=== PATIENT | male | born 1950 | race African-American/Black ===

== ENCOUNTER 2020-01-21 16:43 | Emergency (ER) | payer MEDICARE ==
[~2020-01-21] VITALS: Wt 95.7 kg
[~2020-01-21 16:43] MED LIST: ATENOLOL25 MG PO; MOTRIN400 MG PO; PEN-VEE K500 MG PO; PERIDEX 480 ML480 ML PO
[2020-01-21] MEDS ORDERED: CHLORDIAZEPOXID25 M1 PO (17:33)
== END 2020-01-21 18:16 | disposition home or self-care (01) ==
LOC: ED 16:43
DX: F10.20 Alcohol dependence, uncomplicated (principal); I10 Essential (primary) hypertension; Z88.5 Allergy status to narcotic agent; Z79.899 Other long term (current) drug therapy

== ENCOUNTER 2022-05-29 13:36 | Inpatient (IN) | payer OTHER ==
[~2022-05-29] VITALS: Ht 182.8 cm; Wt 78.0 kg
[~2022-05-29 13:36] MED LIST changes: +AMLODIPINE BESYL5 MG PO; +CHLORDIAZEPOXID25 M1 PO; +MIRTAZAPINE15 M2 PO; +NATURE'S BLEND F1 MG PO; +VITAMIN B-1100 M1 PO
[2022-05-29 13:45] VITALS: BP 154/99
[2022-05-29 15:07] LABS: BILIRUBIN Negative (Negative); BLOOD Negative (Negative); CLARITY Clear (Clear); COLOR Yellow (Yellow); GLUCOSE Trace (Negative); KETONE Trace (Negative); LEUKO ESTERASE Negative (Negative); NITRITE Negative (Negative); PH 5.5 (4.5-8.0)
[2022-05-29 15:18] LABS: URINE BARBITURATES > 200 (200ng/ml); URINE CANNABINOIDS (THC) < 50 (50ng/ml); URINE METHADONE < 300 (300ng/ml); URINE OPIATES < 300 (300ng/ml)
[2022-05-29 15:26] LABS: RBC 0-2 rbc/hpf (0-2); WBC 0-2 wbc/hpf (0-5)
[2022-05-29 15:27] LABS: MUCOUS 1+
[2022-05-29 15:28] LABS: URINE AMPHETAMINES < 1000 (1000ng/ml); URINE BENZODIAZEPINES < 200 (200ng/ml); URINE COCAINE < 300 (300ng/ml)
[2022-05-29 15:29] LABS: URINE PHENCYCLIDINE < 25 (25ng/ml)
[2022-05-29 15:36] LABS: HEMATOCRIT 37.7 % (42.0-52.0); MEAN CELL VOLUME 99.2 fl (80.0-94.0); MEAN CORPUSCULAR HGB 34.2 pg (27.0-31.0); MEAN CORPUSCULAR HGB CONC 34.5 g/dl (33.0-37.0); MEAN PLATELET VOLUME 8.9 fl (9.6-12.3); NUCLEATED RED BLOOD CELL 0.6 % (0.0-0.0); PLATELET COUNT AUTOMATED 217 10*3/uL (130-400); WHITE BLOOD COUNT 5.1 10*3/uL (4.8-10.8)
[2022-05-29 15:48] LABS: ACT PARTIAL THROMBO TIME 26.7 SECONDS (20.0-32.1)
[2022-05-29 15:54] LABS: BUN 9 mg/dl (7-24); CHLORIDE 107 mmol/L (98-107); CREATININE 1.05 mg/dL (0.70-1.30); LIPASE 161 U/L (73-393); POTASSIUM 3.3 mmol/L (3.5-5.1); SGOT/AST 94 IU/L (3-35); SGPT/ALT 120 U/L (12-78); SODIUM 137 mmol/L (136-145); TOTAL PROTEIN 7.8 gm/dL (6.4-8.2)
[2022-05-29 15:56] LABS: ALKALINE PHOSPHATASE 82 U/L (45-117)
[2022-05-29 16:02] LABS: MANUAL DIFF REFLEX YES
[2022-05-29 16:17] LABS: OVALOCYTES FEW; PLATELET SUFFICIENCY NORMAL (NORMAL); TOTAL CELLS COUNTED 100 #CELLS
[2022-05-29 17:00] VITALS: BP 210/130
[2022-05-29] MEDS ORDERED: MEN'S ONE DAIL1 EACH PO (17:18)
[2022-05-29] MEDS ORDERED: OMEPRAZOLE MAGN20 MG PO (17:18)
[2022-05-29] MEDS ORDERED: LOPERAMIDE HCL2 MG PO (17:21)
[2022-05-29 19:06] VITALS: BP 180/100
[2022-05-29 20:00] VITALS: BP 156/92
[2022-05-30] VITALS: BP 144/85
[2022-05-30 05:36] LABS: ALKALINE PHOSPHATASE 74 U/L (45-117); BUN 10 mg/dl (7-24); CHLORIDE 106 mmol/L (98-107); CREATININE 0.94 mg/dL (0.70-1.30); SGOT/AST 57 IU/L (3-35); SGPT/ALT 87 U/L (12-78); SODIUM 139 mmol/L (136-145); TOTAL PROTEIN 6.5 gm/dL (6.4-8.2)
[2022-05-30 06:08] LABS: HEMATOCRIT 34.5 % (42.0-52.0); MEAN CELL VOLUME 98.6 fl (80.0-94.0); MEAN CORPUSCULAR HGB 33.7 pg (27.0-31.0); MEAN CORPUSCULAR HGB CONC 34.2 g/dl (33.0-37.0); MEAN PLATELET VOLUME 9.2 fl (9.6-12.3); NUCLEATED RED BLOOD CELL 0.7 % (0.0-0.0); PLATELET COUNT AUTOMATED 206 10*3/uL (130-400); RED CELL DISTRI WIDTH 14.7 % (0-14.5); WHITE BLOOD COUNT 4.5 10*3/uL (4.8-10.8)
[2022-05-30 06:36] LABS: MANUAL DIFF REFLEX YES
[2022-05-30 06:52] LABS: BASOPHILS 1 % (0-1); PLATELET SUFFICIENCY NORMAL (NORMAL); TOTAL CELLS COUNTED 100 #CELLS
[2022-05-30 08:00] VITALS: BP 146/87
[2022-05-30 12:00] VITALS: BP 124/83
[2022-05-30 16:00] VITALS: BP 118/94
[2022-05-30 20:00] VITALS: BP 130/83
[2022-05-31] VITALS: BP 127/72
[2022-05-31 06:00] LABS: BUN 16 mg/dl (7-24); CHLORIDE 108 mmol/L (98-107); CREATININE 1.05 mg/dL (0.70-1.30); SODIUM 141 mmol/L (136-145)
[2022-05-31 06:27] LABS: BASO % 0.4 % (0.0-1.0); EOS # 0.1 10*3/uL (0.0-0.4); EOS % 1.2 % (1.0-4.0); HEMATOCRIT 34.3 % (42.0-52.0); LYMPH # 1.7 10*3/uL (1.3-4.4); LYMPH % 33.2 % (27.0-41.0); MEAN CORPUSCULAR HGB 33.9 pg (27.0-31.0); MEAN CORPUSCULAR HGB CONC 32.9 g/dl (33.0-37.0); MEAN PLATELET VOLUME 9.7 fl (9.6-12.3); MONO # 0.8 10*3/uL (0.1-1.0); MONO % 15.7 % (3.0-9.0); NEUT # 2.5 10*3/uL (2.3-7.9); NEUT % 48.9 % (47.0-73.0); PLATELET COUNT AUTOMATED 201 10*3/uL (130-400); RED BLOOD COUNT 3.33 10*6/uL (4.50-5.90); RED CELL DISTRI WIDTH 14.7 % (0-14.5); WHITE BLOOD COUNT 5.1 10*3/uL (4.8-10.8)
[2022-05-31 08:00] VITALS: BP 153/84
[2022-05-31 12:00] VITALS: BP 115/86
[2022-05-31 16:00] VITALS: BP 131/76
[2022-05-31 20:00] VITALS: BP 148/86
[2022-06-01] VITALS: BP 134/75
[2022-06-01 05:50] LABS: BUN 16 mg/dl (7-24); CHLORIDE 109 mmol/L (98-107); CREATININE 1.01 mg/dL (0.70-1.30); POTASSIUM 4.5 mmol/L (3.5-5.1); SODIUM 141 mmol/L (136-145)
[2022-06-01 06:15] LABS: BASO % 0.6 % (0.0-1.0); EOS # 0.1 10*3/uL (0.0-0.4); EOS % 1.2 % (1.0-4.0); LYMPH # 1.3 10*3/uL (1.3-4.4); LYMPH % 25.6 % (27.0-41.0); MEAN CELL VOLUME 104.3 fl (80.0-94.0); MEAN CORPUSCULAR HGB CONC 32.6 g/dl (33.0-37.0); MEAN PLATELET VOLUME 9.7 fl (9.6-12.3); MONO # 0.7 10*3/uL (0.1-1.0); MONO % 14.1 % (3.0-9.0); NEUT % 57.9 % (47.0-73.0); PLATELET COUNT AUTOMATED 199 10*3/uL (130-400); RED BLOOD COUNT 3.26 10*6/uL (4.50-5.90); RED CELL DISTRI WIDTH 14.8 % (0-14.5); WHITE BLOOD COUNT 5.2 10*3/uL (4.8-10.8)
[2022-06-01 08:00] VITALS: BP 116/81
[2022-06-01 12:00] VITALS: BP 143/80
[2022-06-01 16:00] VITALS: BP 119/63
== END 2022-06-01 19:11 | disposition short-term general hospital (02) | DRG 897 ==
LOC: ED 13:36 → EDHOLD 14:58 → 4E 14:58 → EDHOLD 15:32 → 4E 16:00
PROVIDERS: Emergency Medicine; Student in an Organized Health Care Education/Training Program; ADMIT Internal Medicine; ATTEND Internal Medicine
DX: F10.280 Alcohol dependence with alcohol-induced anxiety disorder (principal); E87.2 Acidosis; Z20.822 Contact with and (suspected) exposure to COVID-19; I10 Essential (primary) hypertension; F43.10 Post-traumatic stress disorder, unspecified; F32.9 Major depressive disorder, single episode, unspecified; D53.9 Nutritional anemia, unspecified; Z88.6 Allergy status to analgesic agent; Z90.49 Acquired absence of other specified parts of digestive tract; Z87.891 Personal history of nicotine dependence; Z80.3 Family history of malignant neoplasm of breast

== ENCOUNTER 2023-09-17 10:11 | Inpatient (IN) | payer MEDICARE ==
[~2023-09-17] VITALS: Ht 185.4 cm; Wt 83.0 kg
[~2023-09-17 10:11] MED LIST changes: +LOPERAMIDE HCL2 MG PO; +MEN'S ONE DAIL1 EACH PO; +OMEPRAZOLE MAGN20 MG PO
[2023-09-17 10:25] VITALS: BP 146/86
[2023-09-17] MEDS ORDERED: ALLOPURINOL300 MG PO (10:59)
[2023-09-17] MEDS ORDERED: NORVASC5 MG PO (11:00)
[2023-09-17] MEDS ORDERED: MELATONIN3 MG PO (11:00)
[2023-09-17] MEDS ORDERED: PRAZOSIN HCL5 MG PO (11:01)
[2023-09-17] MEDS ORDERED: VITAMIN D325 MCG PO (11:06)
[2023-09-17] MEDS ORDERED: TENORMIN50 MG PO (11:07)
[2023-09-17 11:41] LABS: BASO % 0.3 % (0.0-1.0); EOS % 0.6 % (1.0-4.0); HEMATOCRIT 41.2 % (42.0-52.0); LYMPH % 27.3 % (27.0-41.0); MEAN CELL VOLUME 95.2 fl (80.0-94.0); MEAN CORPUSCULAR HGB 33.3 pg (27.0-31.0); MEAN PLATELET VOLUME 8.8 fl (9.6-12.3); MONO # 0.5 10*3/uL (0.1-1.0); MONO % 13.2 % (3.0-9.0); NEUT # 2.1 10*3/uL (2.3-7.9); NEUT % 58.3 % (47.0-73.0); PLATELET COUNT AUTOMATED 147 10*3/uL (130-400); RED BLOOD COUNT 4.33 10*6/uL (4.50-5.90); WHITE BLOOD COUNT 3.6 10*3/uL (4.8-10.8)
[2023-09-17 11:52] LABS: ACT PARTIAL THROMBO TIME 26.4 SECONDS (20.0-32.1); INTERNATIONAL NORM RATIO 1.1 (2.0-3.5)
[2023-09-17 12:10] LABS: ALKALINE PHOSPHATASE 71 U/L (46-116); BUN 7 mg/dl (9-23); CHLORIDE 103 mmol/L (98-107); POTASSIUM 3.5 mmol/L (3.4-5.1); SGPT/ALT 41 U/L (5-49); TOTAL PROTEIN 7.3 gm/dL (6.0-8.0)
[2023-09-17 12:20] LABS: ETHYL ALCOHOL < 3.0 mg/dl (<3)
[2023-09-17 13:08] VITALS: BP 156/92
[2023-09-17 16:00] VITALS: BP 144/77
[2023-09-17 20:00] VITALS: BP 144/78
[2023-09-18] VITALS: BP 120/64
[2023-09-18 06:19] LABS: BASO % 0.3 % (0.0-1.0); EOS # 0.1 10*3/uL (0.0-0.4); EOS % 2.2 % (1.0-4.0); HEMATOCRIT 37.5 % (42.0-52.0); LYMPH # 1.4 10*3/uL (1.3-4.4); MEAN CELL VOLUME 97.2 fl (80.0-94.0); MEAN CORPUSCULAR HGB 32.9 pg (27.0-31.0); MEAN CORPUSCULAR HGB CONC 33.9 g/dl (33.0-37.0); MEAN PLATELET VOLUME 9.2 fl (9.6-12.3); MONO # 0.6 10*3/uL (0.1-1.0); MONO % 15.4 % (3.0-9.0); NEUT # 1.6 10*3/uL (2.3-7.9); NEUT % 42.8 % (47.0-73.0); PLATELET COUNT AUTOMATED 135 10*3/uL (130-400); RED BLOOD COUNT 3.86 10*6/uL (4.50-5.90); RED CELL DISTRI WIDTH 16.2 % (0-14.5); WHITE BLOOD COUNT 3.6 10*3/uL (4.8-10.8)
[2023-09-18 06:24] LABS: ACT PARTIAL THROMBO TIME 26.8 SECONDS (20.0-32.1)
[2023-09-18 06:52] LABS: ALKALINE PHOSPHATASE 86 U/L (46-116); BUN 9 mg/dl (9-23); CHLORIDE 105 mmol/L (98-107); CHOLESTEROL 136 mg/dL (<200); FREE T4 1.14 ng/dl (0.89-1.76); LDL CHOLESTEROL 58 mg/dL (9-159); SGPT/ALT 29 U/L (5-49); TOTAL PROTEIN 6.2 gm/dL (6.0-8.0); TRIGLYCERIDES 152 mg/dl (<150)
[2023-09-18 07:58] LABS: VITAMIN D, 25-HYDROXY 45.3 ng/mL (30-100)
[2023-09-18 08:00] VITALS: BP 138/84
[2023-09-18 12:00] VITALS: BP 132/82
[2023-09-18 15:19] VITALS: BP 133/72
[2023-09-18 20:00] VITALS: BP 140/85
[2023-09-18 22:42] LABS: BILIRUBIN Negative (Negative); BLOOD Negative (Negative); CLARITY Clear (Clear); COLOR Yellow (Yellow); GLUCOSE Negative (Negative); KETONE Negative (Negative); LEUKO ESTERASE Negative (Negative); NITRITE Negative (Negative)
[2023-09-18 22:48] LABS: URINE AMPHETAMINES Negative (1000ng/ml); URINE BARBITURATES Negative (200ng/ml); URINE BENZODIAZEPINES Negative (200ng/ml); URINE CANNABINOIDS (THC) Negative (50ng/ml); URINE COCAINE Negative (300ng/ml); URINE METHADONE Negative (300ng/ml); URINE OPIATES Negative (300ng/ml); URINE PHENCYCLIDINE Negative (25ng/ml)
[2023-09-18 23:02] LABS: WBC 0-2 wbc/hpf (0-5)
[2023-09-19] VITALS: BP 163/85
[2023-09-19 06:19] LABS: BASO % 0.2 % (0.0-1.0); EOS # 0.1 10*3/uL (0.0-0.4); EOS % 1.6 % (1.0-4.0); HEMATOCRIT 37.2 % (42.0-52.0); LYMPH # 1.2 10*3/uL (1.3-4.4); LYMPH % 26.9 % (27.0-41.0); MEAN CELL VOLUME 94.4 fl (80.0-94.0); MEAN CORPUSCULAR HGB 33.2 pg (27.0-31.0); MEAN CORPUSCULAR HGB CONC 35.2 g/dl (33.0-37.0); MEAN PLATELET VOLUME 9.1 fl (9.6-12.3); MONO # 0.7 10*3/uL (0.1-1.0); NEUT # 2.4 10*3/uL (2.3-7.9); NEUT % 54.1 % (47.0-73.0); PLATELET COUNT AUTOMATED 143 10*3/uL (130-400); RED BLOOD COUNT 3.94 10*6/uL (4.50-5.90); RED CELL DISTRI WIDTH 15.8 % (0-14.5); WHITE BLOOD COUNT 4.4 10*3/uL (4.8-10.8)
[2023-09-19 06:23] LABS: ALKALINE PHOSPHATASE 62 U/L (46-116); BUN 9 mg/dl (9-23); CHLORIDE 106 mmol/L (98-107); POTASSIUM 3.1 mmol/L (3.4-5.1); SGPT/ALT 24 U/L (5-49); TOTAL PROTEIN 6.3 gm/dL (6.0-8.0)
[2023-09-19 08:00] VITALS: BP 180/96
[2023-09-19 12:00] VITALS: BP 155/90
[2023-09-19 16:00] VITALS: BP 118/67
[2023-09-19 20:00] VITALS: BP 159/102
[2023-09-19 20:10] VITALS: BP 160/98
[2023-09-20] VITALS: BP 136/85
[2023-09-20 07:02] LABS: BASO % 0.2 % (0.0-1.0); EOS # 0.1 10*3/uL (0.0-0.4); EOS % 2.5 % (1.0-4.0); HEMATOCRIT 37.4 % (42.0-52.0); LYMPH # 1.1 10*3/uL (1.3-4.4); LYMPH % 24.2 % (27.0-41.0); MEAN CELL VOLUME 94.4 fl (80.0-94.0); MEAN CORPUSCULAR HGB 33.1 pg (27.0-31.0); MEAN PLATELET VOLUME 9.1 fl (9.6-12.3); MONO # 0.7 10*3/uL (0.1-1.0); MONO % 16.2 % (3.0-9.0); NEUT # 2.5 10*3/uL (2.3-7.9); NEUT % 56.7 % (47.0-73.0); PLATELET COUNT AUTOMATED 150 10*3/uL (130-400); RED BLOOD COUNT 3.96 10*6/uL (4.50-5.90); WHITE BLOOD COUNT 4.3 10*3/uL (4.8-10.8)
[2023-09-20 07:26] LABS: BUN 8 mg/dl (9-23); CHLORIDE 104 mmol/L (98-107); POTASSIUM 3.5 mmol/L (3.4-5.1)
[2023-09-20 08:00] VITALS: BP 142/84
[2023-09-20 12:00] VITALS: BP 150/96
[2023-09-20 16:00] VITALS: BP 139/78
[2023-09-20 20:00] VITALS: BP 149/77
[2023-09-21] VITALS: BP 106/66
[2023-09-21 05:33] LABS: ALKALINE PHOSPHATASE 58 U/L (46-116); BUN 10 mg/dl (9-23); CHLORIDE 104 mmol/L (98-107); POTASSIUM 3.7 mmol/L (3.4-5.1); SGPT/ALT 31 U/L (5-49); TOTAL PROTEIN 6.4 gm/dL (6.0-8.0)
[2023-09-21 06:07] LABS: BASO % 0.2 % (0.0-1.0); EOS # 0.2 10*3/uL (0.0-0.4); EOS % 4.5 % (1.0-4.0); LYMPH # 1.5 10*3/uL (1.3-4.4); LYMPH % 32.3 % (27.0-41.0); MEAN CELL VOLUME 95.9 fl (80.0-94.0); MEAN CORPUSCULAR HGB 32.9 pg (27.0-31.0); MEAN CORPUSCULAR HGB CONC 34.3 g/dl (33.0-37.0); MEAN PLATELET VOLUME 9.3 fl (9.6-12.3); MONO # 0.8 10*3/uL (0.1-1.0); MONO % 17.8 % (3.0-9.0); NEUT # 2.1 10*3/uL (2.3-7.9); PLATELET COUNT AUTOMATED 160 10*3/uL (130-400); RED BLOOD COUNT 3.86 10*6/uL (4.50-5.90); WHITE BLOOD COUNT 4.7 10*3/uL (4.8-10.8)
[2023-09-21 08:00] VITALS: BP 132/72
[2023-09-21 12:00] VITALS: BP 94/62
== END 2023-09-21 13:00 | disposition home or self-care (01) | DRG 897 ==
LOC: ED 10:11 → 4E 12:23 → EDHOLD 12:23 → 4E 12:53
PROVIDERS: Internal Medicine; Nurse Practitioner Family; Student in an Organized Health Care Education/Training Program; ADMIT Family Medicine; ATTEND Family Medicine
DX: F10.239 Alcohol dependence with withdrawal, unspecified (principal); N39.0 Urinary tract infection, site not specified; Z59.00 Homelessness unspecified; R17 Unspecified jaundice; E87.8 Other disorders of electrolyte and fluid balance, not elsewhere classified; I10 Essential (primary) hypertension; D64.9 Anemia, unspecified; F11.10 Opioid abuse, uncomplicated; R74.01 Elevation of levels of liver transaminase levels; M1A.9XX1 Chronic gout, unspecified, with tophus (tophi); R73.9 Hyperglycemia, unspecified; D72.819 Decreased white blood cell count, unspecified; F41.9 Anxiety disorder, unspecified; F43.10 Post-traumatic stress disorder, unspecified; F32.A Depression, unspecified; Z88.5 Allergy status to narcotic agent; Z79.899 Other long term (current) drug therapy; Z90.49 Acquired absence of other specified parts of digestive tract; Z87.891 Personal history of nicotine dependence; Z80.3 Family history of malignant neoplasm of breast